=== PATIENT | male | born 1985 | race Caucasian/White ===

== ENCOUNTER 2019-09-28 01:01 | Emergency (ER) | payer SELFPAY ==
[~2019-09-28] VITALS: Ht 188 cm; Wt 100.0 kg
[2019-09-28 01:04] VITALS: TEMP 98.3
[2019-09-28 01:37] LABS: BASO # 0.1 (0.0-0.2); BASO % 0.3 % (0.0-2.0); EOS % 0.1 % (0-4.0); GRAN # 11.8 (1.4-6.5); GRAN % 82.7 % (42.2-75.2); HEMATOCRIT 42.9 % (42.0-52.0); HEMOGLOBIN 14.5 g/dl (13.5-18.0); LYMPH # 1.4 (1.2-3.4); LYMPH % 9.8 % (20.0-51.0); MEAN CELL VOLUME 91 fl (80.0-100.0); MEAN CORPUSCULAR HEMOGLOBIN 31 pg (27.0-31.0); MEAN CORPUSCULAR HGB CONC 34 g/dl (33.0-37.0); MEAN PLATELET VOLUME 10.7 fl (7.4-10.4); MONO # 0.9 (0.1-0.6); MONO % 6.4 % (1.7-9.3); PLATELET COUNT 239 K/mm3 (130-400); RED BLOOD COUNT 4.71 M/mm3 (4.20-5.60); REDCELL DISTRIBUTION WIDTH-CV 12.2 % (11.5-14.5)
[2019-09-28 01:45] LABS: INR 1.1 (0.8-3.0); PROTHROMBIN TIME 12.1 SECONDS (9.7-12.8)
[2019-09-28 01:54] LABS: ALBUMIN 4.2 gm/dL (3.5-5.0); BILIRUBIN,TOTAL 0.5 mg/dL (0.0-1.0); CALCIUM 8.6 mg/dL (8.4-10.2); CREATININE, serum 0.74 (0.66-1.25); TOTAL PROTEIN 7.1 gm/dL (6.4-8.2)
[2019-09-28 03:28] LABS: MUCOUS Present /lpf; PH 6 (5-8); SQUAMOUS EPITHELIAL None Seen /hpf; URINE APPEARANCE Clear; URINE BACTERIA None Seen /hpf; URINE BILIRUBIN Negative (NEGATIVE); URINE BLOOD Negative (NEGATIVE); URINE COLOR Yellow; URINE GLUCOSE Negative (NEGATIVE); URINE KETONE Trace (NEGATIVE); URINE LEUKOCYTE ESTERASE Negative (NEGATIVE); URINE NITRATE Negative (NEGATIVE); URINE PROTEIN(semi-quant) Negative (NEGATIVE); URINE RBC 0-2 /hpf; URINE UROBILINOGEN Negative (NEGATIVE); URINE WBC 0-2 /hpf
[2019-09-28 03:32] LABS: COLLECTION METHOD CLEAN CATCH
[2019-09-28 04:38] VITALS: BP 114/60; PULSE 98
== END 2019-09-28 04:38 | disposition short-term general hospital (02) ==
LOC: COL.ER 01:01
PROVIDERS: Emergency Medicine
DX: S42.401A Unspecified fracture of lower end of right humerus, initial encounter for closed fracture (principal); S00.81XA Abrasion of other part of head, initial encounter; R40.2410 Glasgow coma scale score 13-15, unspecified time; Z23 Encounter for immunization; V89.2XXA Person injured in unspecified motor-vehicle accident, traffic, initial encounter
CPT/HCPCS: J3010; J7030; Q9967